=== PATIENT | female | born 1975 | race Caucasian/White ===

== ENCOUNTER 2020-07-28 14:24 | Emergency (ER) | payer SELFPAY ==
[2020-07-28] MEDS ORDERED: KETOROLAC TROMETHAMINE INJ/PF 30 MG/1 ML SDV IM ONE (15:06)
--- NOTE | 2020-07-28 15:08 | ER Document Report ---
ED Medical Screen (RME) - General Chief Complaint: Possible Kidney Stone Stated Complaint: ABDOMINAL PAIN Time Seen by Provider: 07/28/20 15:05 Mode of Arrival: Ambulatory Information source: Patient Notes: 43-year-old female presented to ED for complaint of left flank pain for the last 2 days. She states now it wraps around to the left abdomen. She states it is a constant pain in her left flank with intermittent almost like labor pains in the front. She has no history of kidney stones. She does have a history of hysterectomy and a bilateral tubal ligation multiple fractures with no surgery to them. She is alert oriented respirations regular nonlabored speaking in full sentences. She does have tenderness to the left flank. I have greeted and performed a rapid initial assessment of this patient. A comprehensive ED assessment and evaluation of the patient, analysis of test results and completion of medical decision making process will be conducted by an additional ED providers. - Related Data Allergies/Adverse Reactions: No Known Allergies Allergy (Verified 07/28/20 15:02) Past Medical History - Social History Chew tobacco use (# tins/day): No Frequency of alcohol use: Occasional Drug Abuse: None Physical Exam - Vital signs Vitals: Temp Pulse Resp BP Pulse Ox 98.3 F 87 16 193/98 H 100 07/28/20 14:52 07/28/20 14:52 07/28/20 14:52 07/28/20 14:52 07/28/20 14:52 Course - Vital Signs Vital signs: Temp Pulse Resp BP Pulse Ox 98.3 F 87 16 193/98 H 100 07/28/20 15:02 07/28/20 14:52 07/28/20 14:52 07/28/20 14:52 07/28/20 14:52
--- NOTE | 2020-07-28 15:38 | RADIOLOGY REPORT (SQ) ---
EXAM DESCRIPTION: CT ABD/PELVIS NO ORAL OR IV IMAGES COMPLETED DATE/TIME: 07/28/2020 3:20 pm REASON FOR STUDY: Left flank pain COMPARISON: None. TECHNIQUE: CT scan of the abdomen and pelvis performed without intravenous or oral contrast. Images reviewed with lung, soft tissue, and bone windows. Reconstructed coronal and sagittal MPR images revi ewed. All images stored on PACS. All CT scanners at this facility use dose modulation, iterative reconstruction, and/or weight based d osing when appropriate to reduce radiation dose to as low as reasonably achievable (ALARA). [facility]: Dose Right [facility]: CareDose [facility]: Dose Right [facility]: Teradose 4D [facility]: Fuse Science RADIATION DOSE: CT Rad equipment meets quality standard of care and radiation dose reduction techniq ues were employed. CTDIvol: 7.6 mGy. DLP: 412 mGy-cm.mGy. LIMITATIONS: None. FINDINGS: LOWER CHEST: No significant findings. No nodules or infiltrates. NON-CONTRASTED LIVER, SPLEEN, ADRENALS: Evaluation limited by lack of IV contrast. No identified sign ificant masses. PANCREAS: No masses. No peripancreatic inflammatory changes. GALLBLADDER: No identified stones by CT criteria. No inflammatory changes to suggest cholecystitis. RIGHT KIDNEY AND URETER: No suspicious masses. Assessment limited by lack of IV contrast. No signif icant calcifications. No hydronephrosis or hydroureter. LEFT KIDNEY AND URETER: No suspicious masses. Assessment limited by lack of IV contrast. No signifi cant calcifications. Left-sided hydronephrosis and perinephric stranding. There is ureteral dilata tion in ureteral stranding as well. Changes secondary to a left pelvic mass measuring 6.6 x 6.1 cm. Hounsfield units measure 64. AORTA AND RETROPERITONEUM: No aneurysm. No retroperitoneal masses or adenopathy. BOWEL AND PERITONEAL CAVITY: No obvious masses or inflammatory changes. No free fluid. APPENDIX: Normal. PELVIS, BLADDER, AND ABDOMINAL WALL:Left pelvic mass as described. Hounsfield units measure 25. Thi s could represent hemorrhagic cyst. Possibly ovarian torsion. BONES: No significant findings. OTHER: No other significant finding. IMPRESSION: Left pelvic mass measuring 6.6 x 6.1 cm. Possibly ovarian in origin. This could repres ent neoplasm, infectious or inflammatory process is also a possibility. Ovarian torsion cannot be ex cluded. There is secondary left-sided hydronephrosis and hydroureter. COMMENT: Quality ID # [id number]: Final reports with documentation of one or more dose reduction techniques (e.g., Automated exposure control, adjustment of the mA and/or kV according to patient size, use of iterative reconstruction technique) TECHNICAL DOCUMENTATION: JOB ID: [id number] 2010 [employer]- All Rights Reserved Reading location - IP/workstation name: [email or web address]
[2020-07-28 15:42] LABS: ABSOLUTE BASOPHILS # (AUTO) 0.1 10^3/uL (0.0-0.2); ABSOLUTE EOSINOPHILS # (AUTO) 0.2 10^3/uL (0.0-0.6); ABSOLUTE LYMPHOCYTES (AUTO) 1.6 10^3/uL (0.5-4.7); ABSOLUTE MONOCYTES (AUTO) 1.1 10^3/uL (0.1-1.4); ABSOLUTE NEUT (AUTO) 13.2 10^3/uL (1.7-8.2); APPEARANCE,URINE CLEAR; BASOPHILS % (AUTO) 0.4 % (0-2); BILIRUBIN,URINE NEGATIVE (NEGATIVE); COLOR,URINE YELLOW; EOSINOPHILS % (AUTO) 1.1 % (0-6); GLUCOSE, URINE NEGATIVE (NEGATIVE); HEMOGLOBIN 13.9 g/dL (12.0-15.5); KETONES,URINE NEGATIVE (NEGATIVE); LEUKOCYTE ESTERASE,URINE NEGATIVE (NEGATIVE); LYMPHOCYTES % (AUTO) 9.9 % (13-45); MEAN CORPUSCULAR HEMOGLOBIN 31.5 pg (27.0-33.4); MEAN CORPUSCULAR HGB CONC 34.7 g/dL (32.0-36.0); MEAN CORPUSCULAR VOLUME 91 fl (80-97); MONOCYTES % (AUTO) 6.8 % (3-13); NITRITE,URINE NEGATIVE (NEGATIVE); PLATELET COUNT 172 10^3/uL (150-450); PROTEIN,URINE NEGATIVE (NEGATIVE); RED BLOOD COUNT 4.41 10^6/uL (3.72-5.28); RED CELL DISTRIBUTION WIDTH 12.8 % (11.5-14.0); SEGMENTED NEUTROPHILS % (AUTO) 81.8 % (42-78); TOTAL CELLS COUNTED % (AUTO) 100 %; URINE SPECIFIC GRAVITY 1.014; UROBILINOGEN,URINE NEGATIVE mg/dL (<2.0); WHITE BLOOD COUNT 16.1 10^3/uL (4.0-10.5)
[2020-07-28 16:03] LABS: ALBUMIN 4.6 g/dL (3.5-5.0); ALKALINE PHOSPHATASE 81 U/L (38-126); ANION GAP 10 (5-19); ASPARTATE AMINO TRANSFERASE 23 U/L (14-36); BILIRUBIN,DIRECT 0.1 mg/dL (0.0-0.4); BILIRUBIN,TOTAL 0.4 mg/dL (0.2-1.3); BLOOD UREA NITROGEN 7 mg/dL (7-20); CALCIUM 9.8 mg/dL (8.4-10.2); CARBON DIOXIDE 25 mmol/L (22-30); CHLORIDE 103 mmol/L (98-107); GLUCOSE 96 mg/dL (75-110); POTASSIUM 3.9 mmol/L (3.6-5.0); TOTAL PROTEIN 7.6 g/dL (6.3-8.2)
--- NOTE | 2020-07-28 17:44 | RADIOLOGY REPORT (SQ) ---
EXAM DESCRIPTION: U/S NON OB PEL W/DOPPLER IMAGES COMPLETED DATE/TIME: 07/28/2020 4:24 pm REASON FOR STUDY: left pelvic mass cannot rule out torsion. Previous hysterectomy and patient think s she had a right oophorectomy. COMPARISON: None. TECHNIQUE: Dynamic and static grayscale images acquired of the pelvis via transabdominal approach an d recorded on PACS. Additional selected color Doppler and spectral images recorded. LIMITATIONS: None. FINDINGS: UTERUS: Post hysterectomy. RIGHT OVARY AND DOPPLER: Not visualized, likely surgically absent. LEFT OVARY AND DOPPLER: Dominant hypoechoic lesion within the left ovary measures 5.8 x 5.8 x 4.6 cm. Color and spectral Doppler imaging demonstrate peripheral vascular flow within the left ovary. No definitive vascular flow within the dominant lesion. FREE FLUID: None noted. OTHER: No other significant finding. MEASUREMENTS: UTERUS: Surgically absent ENDOMETRIAL STRIPE: NA RIGHT OVARY: Surgically absent LEFT OVARY: 6.4 x 5 x 4.6 cm IMPRESSION: Homogeneous hypoechoic lesion within the left ovary may represent a hemorrhagic ovarian follicle. A follow-up pelvic ultrasound in 4- 6 weeks is recommended to confirm resolution. Alterna tively, further evaluation with pelvic MRI with contrast could be performed. No evidence of torsion. TECHNICAL DOCUMENTATION: JOB ID: [id number] [employer]- All Rights Reserved Rev Reading location - IP/workstation name: [email or web address]
[2020-07-28] MEDS ORDERED: AMLODIPINE BESYLATE 5 MG TABLET PO ONE (20:10)
[2020-07-28] MEDS ORDERED: HYDROCODONE/ACETAMINOPHEN 5-325 MG (6 TAB/ER DISP) PO PRN (20:10)
--- NOTE | 2020-07-28 20:24 | ER Document Report ---
Entered by HERRERA AMOS SCRIBE 07/28/201944 Acting as scribe for:PHILLIP HOOD DO ED GI/ - General Chief Complaint: Possible Kidney Stone Stated Complaint: ABDOMINAL PAIN Time Seen by Provider: 07/28/20 15:05 Primary Care Provider: MARQUIS NGUYEN MD [ACTIVE PROVISIONAL STAFF] - 08/02/20 Mode of Arrival: Ambulatory Information source: Patient Notes: This 44 year old female patient presents to the emergency department today with complaints of a two day history of left flank and left lower quadrant abdominal pain. Patient reports that her pain began in the left flank and now radiates up to the left lower quadrant. Patient reports there is a constant ache and there is waves of more severe pain that "feels like child ". Patient complains of nausea but denies vomiting. Patient denies a history of kidney stones. - Related Data Allergies/Adverse Reactions: No Known Allergies Allergy (Verified 07/28/20 15:02) Past Medical History - General Information source: Patient - Social History Smoking Status: Current Every Day Smoker Cigarette use (# per day): Yes Chew tobacco use (# tins/day): No Frequency of alcohol use: Occasional Drug Abuse: None Lives with: Family Family History: Reviewed & Not Pertinent Patient has homicidal ideation: No - Past Medical History Cardiac Medical History: Reports: Hx Hypertension Past Surgical History: Reports: Hx Hysterectomy, Other - Right-sided oophorectomy Review of Systems - Review of Systems Constitutional: No symptoms reported EENT: No symptoms reported Cardiovascular: No symptoms reported Respiratory: No symptoms reported Gastrointestinal: See HPI, Abdominal pain, Nausea. denies: Vomiting Genitourinary: See HPI, Flank pain Female Genitourinary: No symptoms reported Musculoskeletal: No symptoms reported Skin: No symptoms reported Hematologic/Lymphatic: No symptoms reported Neurological/Psychological: No symptoms reported -: Yes All other systems reviewed and negative Physical Exam - Vital signs Vitals: Temp Pulse Resp BP Pulse Ox 98.3 F 87 16 193/98 H 100 07/28/20 14:52 07/28/20 14:52 07/28/20 14:52 07/28/20 14:52 07/28/20 14:52 - Notes Notes: Physical Exam: General: Alert, appears well. HEENT: Normocephalic. Atraumatic. PERRL. Extraocular movements intact. Oropharynx clear. Neck: Supple. Non-tender. Respiratory: No respiratory distress. Clear and equal breath sounds bilaterally. Cardiovascular: Regular rate and rhythm. Abdominal: Mild left lower quadrant tenderness with palpation. No distension. Normal Bowel Sounds. Back: No gross abnormalities. Extremities: Moves all four extremities. Upper extremities: Normal inspection. Normal ROM. Lower extremities: Normal inspection. No edema. Normal ROM. Neurological: Normal cognition. AAOx4. Normal speech. Psychological: Normal affect. Normal Mood. Skin: Warm. Dry. Normal color. Course - Re-evaluation Re-evalutation: 07/28/20 20:20 MDM 44 year old female with 2 days of left lower quad pain is here with what appears as hem ov cyst. She is pain controlled after ketorolac here. BP up and knows she has htn, but off her meds. I have discussed with Dr. Nguyen who has graciously agreed to see and evaluate for admission. She had hysterectomy due to endometriosis complicatons about 2 years ago in [place]. Works locally as [employer]. Discussed imp of treating htn. She expressed understanding. - Vital Signs Vital signs: Temp Pulse Resp BP Pulse Ox 98.3 F 87 16 193/98 H 100 07/28/20 15:02 07/28/20 14:52 07/28/20 14:52 07/28/20 14:52 07/28/20 14:52 - Laboratory Result Diagrams: 07/28/20 15:27 07/28/20 15:27 Laboratory results interpreted by me: 07/28/20 07/28/20 15:27 15:27 WBC 16.1 H Lymph % (Auto) 9.9 L Absolute Neuts (auto) 13.2 H Seg Neutrophils % 81.8 H Urine Blood MODERATE H Urine Ascorbic Acid 20 H - Diagnostic Test Radiology reviewed: Reports reviewed Discharge - Discharge Clinical Impression: Left flank pain Condition: Stable Disposition: HOME, SELF-CARE Instructions: Abdominal Pain ([facility]), Ovarian Cyst ([facility]) Additional Instructions: Your blood pressure was too high. Have that rechecked. Take your medicine as directed. If you do not receive a call from Dr. Nguyen's office by Sunday, call them. Take the pain medicine as directed. Return here for increased pain, fever, persistent vomiting, other problems or concerns. Try to stop smoking. Prescriptions: Polyethylene Glycol 3350 [Miralax Powder 17 gm/Packet] 1 packet PO DAILY #7 pkg Hydrocodone/Acetaminophen [Lumpkin 5-325 mg Tablet] 1 tab PO TID #12 tablet RX: Amlodipine Besylate [Norvasc 5 mg Tablet] 5 mg PO DAILY #30 tablet Forms: Elevated Blood Pressure, Smoking Cessation Education, Return to Work Referrals: MARQUIS NGUYEN MD [ACTIVE PROVISIONAL STAFF] - 08/02/20 I personally performed the services described in the documentation, reviewed and edited the documentation which was dictated to the scribe in my presence, and it accurately records my words and actions.
[2020-07-28 20:44] VITALS: BP 178/98
== END 2020-07-28 21:02 | disposition home or self-care (01) ==
LOC: ER 14:24
DX: R10.9 Unspecified abdominal pain (principal); R50.9 Fever, unspecified; R11.2 Nausea with vomiting, unspecified; R10.32 Left lower quadrant pain; F17.210 Nicotine dependence, cigarettes, uncomplicated; I10 Essential (primary) hypertension
CPT/HCPCS: 99285; 96372; 36415; 87086; 85025; 80053; 81001; 76856; 93976; 74176; J1885; 87088